=== PATIENT | female | born 1970 ===

== ENCOUNTER 2023-10-20 08:51 | Outpatient (CLI) | payer OTHER | END 2023-10-20 09:02 | disposition home or self-care (01) | LOC: SONOGRAMA 08:51 | PROVIDERS: ATTEND Specialist | DX: R59.0 Localized enlarged lymph nodes (principal) ==

== ENCOUNTER 2023-11-18 12:08 | Outpatient (CLI) | payer OTHER | END 2023-11-18 12:27 | disposition home or self-care (01) | LOC: SONOGRAMA 12:08 | PROVIDERS: ATTEND Specialist | DX: R59.0 Localized enlarged lymph nodes (principal) ==